=== PATIENT | male | born 1970 | race Caucasian/White ===

== ENCOUNTER 2020-07-24 20:59 | Emergency (ER) | payer SELFPAY ==
[~2020-07-24] VITALS: Ht 180.3 cm; Wt 88.0 kg
[2020-07-24 21:09] VITALS: BP 140/90
== END 2020-07-24 21:17 | disposition left against medical advice (07) ==
LOC: ER 21:13
DX: R07.89 Other chest pain (principal); J45.909 Unspecified asthma, uncomplicated
CPT/HCPCS: 93005; 99283